=== PATIENT | female | born 1990 | race Caucasian/White ===

== ENCOUNTER 2016-03-20 22:34 | Emergency (ER) | payer OTHER ==
[2016-03-20] MEDS ORDERED: IBUPROFEN 600 MG TABLET (FP) PO ONE ×2 (22:50→22:54)
[2016-03-20 22:59] VITALS: BP 132/70; BMI 21.4
--- NOTE | 2016-03-20 23:24 | PDOC ---
History of Present Illness - General History Source: Patient, Family - History of Present Illness Initial Comments: 03/21/16 00:29 The patient is a 25 year old Maltese speaking female with no significant past medical history who presents to the Emergency Department with complaints of fever, chills, weakness, and generalized body ache since this morning. As per her sister in-law, pt took Tylenol x2 for her pain with no relief. She states that last time she had food was 6 hours ago. The patient is breast feeding and had a delivery 9 months ago. She denies chest pain, SOB, abdominal pain, nausea , vomiting, diarrhea, hematuria, dysuria, headache. (-) flu isabel <Chloe Kimbrough - Last Filed: 03/21/16 00:29> <Concepción Lyon - Last Filed: 03/21/16 04:04> - General Chief Complaint: Respiratory Stated Complaint: WEAKNESS Time Seen by Provider: 03/20/16 23:24 Past History <Chloe Kimbrough - Last Filed: 03/21/16 00:29> - Past Medical History Asthma: No Cancer: No Cardiac Disorders: No Diabetes: No HTN: No Seizures: No Thyroid Disease: No - Psycho/Social/Smoking Cessation Hx Suicidal Ideation: No Smoking History: Never smoked Have you smoked in the past 12 months: No Hx Alcohol Use: No Drug/Substance Use Hx: No Hx Substance Use Treatment: No <Concepción Lyon - Last Filed: 03/21/16 04:04> - Past Medical History Allergies/Adverse Reactions: Allergies Allergy/AdvReac Type Severity Reaction Status Date / Time No Known Allergies Allergy Verified 03/20/16 22:47 Review of Systems - Review of Systems Able to Perform ROS?: Yes Comments:: 03/21/16 00:30 GENERAL/CONSTITUTIONAL: Yes: fever, chills, generalized bodyache, weakness No: loss of appetite. HEAD, EYES, EARS, NOSE AND THROAT: No: change in vision, ear pain, discharge, sore throat, throat swelling. CARDIOVASCULAR: No: chest pain, lightheadedness, palpitations, syncope RESPIRATORY: No: cough, shortness of breath, wheezing, hemoptysis, stridor. GASTROINTESTINAL: No: nausea, vomiting, abdominal cramping, diarrhea, rectal bleeding, constipation. GENITOURINARY: No: dysuria, hematuria, frequency, urgency, flank pain. MUSCULOSKELETAL: No: back pain, neck pain, joint pain, muscle swelling or pain SKIN AND BREASTS: No: lesions, pallor, rash or easy bruising. NEUROLOGIC: No: headache, vertigo, paresthesias, weakness ENDOCRINE: No: unexplained weight gain or loss HEMATOLOGIC/LYMPHATIC: No: anemia, easy bleeding, swelling nodes All Other Systems: Reviewed and Negative <Chloe Kimbrough - Last Filed: 03/21/16 00:29> *Physical Exam - Vital Signs Last Vital Signs Temp Pulse Resp BP Pulse Ox 100.3 F H 138 H 22 132/70 100 03/20/16 22:52 03/20/16 22:52 03/20/16 22:52 03/20/16 22:52 03/20/16 22:52 - Physical Exam Comments: 03/21/16 00:31 GENERAL: The patient is in no acute distress. HEAD: Normal with no signs of trauma. EYES: PERRLA, EOMI, sclera anicteric, conjunctiva clear. ENT: Ears normal, nares patent, oropharynx clear without exudates. Moist mucous membranes. NECK: Normal range of motion, supple without lymphadenopathy, JVD, or masses. LUNGS: Breath sounds equal, clear to auscultation bilaterally. No wheezes, and no crackles. HEART:+tachycardia. normal S1 and S2 without murmur, rub or gallop. ABDOMEN: Soft, nontender, normoactive bowel sounds. No guarding, no rebound. EXTREMITIES: Normal range of motion, no edema. No clubbing or cyanosis. No erythema, or tenderness. NEUROLOGICAL: Cranial nerves II through XII grossly intact. Normal speech. No focal neurological deficits. MUSCULOSKELETAL: Back non-tender to palpation, no CVA tenderness SKIN: Warm, Dry, normal turgor, no rashes or lesions noted. <Chloe Kimbrough - Last Filed: 03/21/16 00:29> - Vital Signs Last Vital Signs Temp Pulse Resp BP Pulse Ox 100.3 F H 138 H 22 132/70 100 03/20/16 22:52 03/20/16 22:52 03/20/16 22:52 03/20/16 22:52 03/20/16 22:52 <Concepción Lyon - Last Filed: 03/21/16 04:04> ED Treatment Course - Medications Given in the ED: ED Medications Discontinued Medications Generic Name Dose Route Start Last Admin Trade Name Freq PRN Reason Stop Dose Admin Ibuprofen 600 mg 03/20/16 22:54 03/20/16 22:54 Motrin - PO 03/20/16 22:55 600 mg NOW ONE Administration <Chloe Kimbrough - Last Filed: 03/21/16 00:29> - LABORATORY CBC & Chemistry Diagram: 03/21/16 00:34 03/21/16 00:34 - Medications Given in the ED: ED Medications Discontinued Medications Generic Name Dose Route Start Last Admin Trade Name Freq PRN Reason Stop Dose Admin Ibuprofen 600 mg 03/20/16 22:54 03/20/16 22:54 Motrin - PO 03/20/16 22:55 600 mg NOW ONE Administration <Concepción Lyon - Last Filed: 03/21/16 04:04> Medical Decision Making - Medical Decision Making 03/21/16 04:01 Pt comes with viral syndrome; fever and body aches and weakness that is generalized. She is able to eat, but doesn't feel like eating. She was treated with hydration and pain meds. Pt feeling better; labs are normal and she has no influenza on rapid influenza. No UTI and her WBC is normal. She will be discharged home. Tylenol for pain, as she is breast feeding. <Concepción Lyon - Last Filed: 03/21/16 04:04> *DC/Admit/Observation/Transfer - Attestations Scribe Attestion: 03/21/16 00:32 Documentation prepared by Chloe Kimbrough, acting as medical office rep for Concepción Lyon MD. <Chloe Kimbrough - Last Filed: 03/21/16 00:29> - Discharge Dispostion Admit: No <Concepción Lyon - Last Filed: 03/21/16 04:04> Diagnosis at time of Disposition: Viral syndrome - Discharge Dispostion Disposition: HOME Condition at time of disposition: Stable - Referrals Referrals: Sarah Figueroa MD [Primary Care Provider] - - Patient Instructions Printed Discharge Instructions: DI for Viral Syndrome Additional Instructions: Continue to take Tylenol 650mg every 6 hours for aches/ fever. Follow up with your doctor. Drink plenty of clear fluids. Return to emergency room for shortness of breath, pain, or any other concerns.
[2016-03-21 00:48] LABS: PLATELET COUNT 175 K/MM3 (134-434)
[2016-03-21 00:52] LABS: BASOPHIL 0.6 % (0-2.0); EOSINOPHIL 0.2 % (0-4.5); MCH 27.4 pg (25.7-33.7); MCHC 33.3 g/dl (32.0-36.0); MEAN CELL VOLUME 82.3 fl (80-96); MEAN PLT VOLUME 8.7 fl (7.5-11.1); NEUTROPHILS 82.5 % (42.8-82.8); RDW 13.4 % (11.6-15.6); WHITE BLOOD COUNT 7.9 K/mm3 (4.0-10.0)
[2016-03-21 00:55] LABS: URINE APPEARANCE CLEAR; URINE BILIRUBIN NEGATIVE (NEGATIVE); URINE COLOR LTYELLOW; URINE GLUCOSE (UA) NEGATIVE (NEGATIVE); URINE KETONE NEGATIVE (NEGATIVE); URINE LEUK ESTERASE NEGATIVE (NEGATIVE); URINE NITRITE NEGATIVE (NEGATIVE); URINE PROTEIN NEGATIVE (NEGATIVE); URINE UROBILINOGEN NEGATIVE E.U./dl (0.2-1.0)
[2016-03-21 00:56] LABS: URINE BLOOD 1+ (NEGATIVE)
[2016-03-21 01:05] LABS: URINE BACTERIA FEW /hpf (NONE SEEN); URINE MUCUS RARE; URINE RBC 2 /hpf (0-3); URINE WBC 4 /hpf (3-5)
[2016-03-21 01:11] LABS: ALK PHOS 82 U/L (45-117); ANION GAP 11 (8-16); BILIRUBIN,TOTAL 0.9 mg/dL (0.2-1.0); CALCIUM 9.4 mg/dL (8.5-10.1); CO2 27 mmol/L (21-32); CREATININE 0.7 mg/dL (0.55-1.02); GLUCOSE,RANDOM 98 mg/dL (74-106); SGOT/AST 44 U/L (15-37); SGPT/ALT 53 U/L (12-78); TOT PROT 7.2 g/dl (6.4-8.2)
[2016-03-21 01:48] VITALS: PULSE 99; TEMP 99
== END 2016-03-21 01:52 | disposition home or self-care (01) ==
LOC: JER 22:34 → EDBD 22:34 → JER 03-21 01:48
DX: B34.9 Viral infection, unspecified (principal)
CPT/HCPCS: 36415; 80053; 81003; 81015; 84703; 85025; 87804; 99281-25

== ENCOUNTER 2017-04-17 20:01 | Emergency (ER) | payer OTHER ==
[2017-04-17 20:05] VITALS: BP 124/84; PULSE 83; TEMP 98.6; BMI 23.0
--- NOTE | 2017-04-17 20:45 | PDOC ---
History of Present Illness - General History Source: Patient Exam Limitations: No Limitations - History of Present Illness Initial Comments: 04/17/17 20:51 The patient is a 26 year old female with no significant past medical history who presents to the ED with 2 days of cold like symptoms. The patient reports a subjective fever and chills that started yesterday. She also reports cough, nasal congestion, and generalized body aches associated with present symptoms. Patient did not take any medication for present symptoms. Denies shortness of breath or chest pain. Denies any other symptoms. PAST MEDICAL HISTORY: no significant history PAST SURGICAL HISTORY: no significant history FAMILY HISTORY: no pertinent history SOCIAL HISTORY: Pt lives with family and is employed. MEDICATIONS: reviewed ALLERGIES: As per nursing notes General: + fever, chills No no weakness, no weight loss HEENT: + nasal congestion. No change in vision. No sore throat,. No ear pain CardioVascular: No chest pain or shortness of breath Respiratory: + cough. No wheezing. Gastrointestinal: no nausea, vomiting, diarrhea or constipation, No rectal bleeding Genitourinary: No dysuria, hematuria, or frequency Musculoskeletal: + generalized body aches. Neurologic: No headache, vertigo, dizziness or loss of consciousness Psychiatric: nor depression Skin: No rashes or easy bruising Endocrine: no increased thirst or abnormal weight change Allergic: no skin or latex allergy All other systems reviewed and normal General: Well-nourished well-developed individual, no acute distress HEENT: Throat: + There is mild erythema in the posterior oropharynx. Normal, tonsils normal, no exudate Neck: Supple, no meningeal signs, no lymphadenopathy Eyes::Pupils equal reactive and round, extraocular motion intact Chest: Nontender to palpation Cardiac: S1-S2 normal, regular rate and rhythm, no murmurs rubs or gallops Respiratory: Lungs clear to auscultation bilateral Abdomen: Soft, nondistended, normal bowel sounds, nontender to palpation diffusely Extremities: Warm, dry, no cyanosis, clubbing, or edema Skin: No rashes Neuro: Alert and oriented x3, nonfocal exam, grossly intact, normal gait Psych: Normal mood and affect <Trino Baltazar - Last Filed: 04/17/17 20:51> - General History Source: Patient Exam Limitations: No Limitations - History of Present Illness Initial Comments: A portion of this note was documented by scribe services under my direction. I have reviewed the details of the note, within reason, and agree with the documentation. The case summary and management plan written by me. Assessment and plan: This is a 26-year-old female with 2 days of viral upper respiratory flulike illness symptoms. Patient does not appear acutely ill or toxic. Patient is able to tolerate by mouth's and was instructed to take Tylenol or Motrin for her fevers body aches and headache. Patient did not get her influenza shot this year so most likely this is the influenza. Patient was instructed to stay home and not go to work in tell she has no fevers for 24 hours and follow-up with her doctor. Patient discharged home <Ivory Amanda I - Last Filed: 04/17/17 21:39> - General Chief Complaint: Cold Symptoms Stated Complaint: COUGH X 2 DAYS Time Seen by Provider: 04/17/17 20:16 Past History <Trino Baltazar - Last Filed: 04/17/17 20:51> - Past Medical History Asthma: No Cancer: No Cardiac Disorders: No COPD: No Diabetes: No HTN: No Seizures: No Thyroid Disease: No - Suicide/Smoking/Psychosocial Hx Smoking History: Never smoked Have you smoked in the past 12 months: No Hx Alcohol Use: No Drug/Substance Use Hx: No Substance Use Type: None Hx Substance Use Treatment: No <Ivory Amanda I - Last Filed: 04/17/17 21:39> - Past Medical History Allergies/Adverse Reactions: Allergies Allergy/AdvReac Type Severity Reaction Status Date / Time No Known Allergies Allergy Verified 04/17/17 20:02 Home Medications: Ambulatory Orders NK [No Known Home Medication] 04/17/17 *Physical Exam - Vital Signs Last Vital Signs Temp Pulse Resp BP Pulse Ox 98.6 F 83 15 124/84 100 04/17/17 20:02 04/17/17 20:02 04/17/17 20:02 04/17/17 20:02 04/17/17 20:02 <Trino Baltazar - Last Filed: 04/17/17 20:51> - Vital Signs Last Vital Signs Temp Pulse Resp BP Pulse Ox 98.6 F 83 15 124/84 100 04/17/17 20:02 04/17/17 20:02 04/17/17 20:02 04/17/17 20:02 04/17/17 20:02 <Ivory Amanda I - Last Filed: 04/17/17 21:39> *DC/Admit/Observation/Transfer - Attestations Scribe Attestion: 04/17/17 20:51 Documentation prepared by Trino Baltazar, acting as medical data analyst for Ivory Amanda MD <Trino Baltazar - Last Filed: 04/17/17 20:51> - Discharge Dispostion Admit: No <Ivory Amanda I - Last Filed: 04/17/17 21:39> Diagnosis at time of Disposition: Influenza-like illness - Discharge Dispostion Disposition: HOME Condition at time of disposition: Stable - Patient Instructions Additional Instructions: You can alternate acetaminophen with ibuprofen every 3 hours if needed for body aches, headache, fevers. Stay home do not go out in public and expose other people, do not go to work until no fever for 24 hours without having to take any medication. Return to the emergency department immediately with ANY new, persistent or worsening symptoms. Continue any medications as previously prescribed by your physician. You should follow up with your primary doctor as soon as possible regarding today's emergency department visit. . Please make sure your doctor reviews the results of your emergency evaluation. Thank you for coming to the Emergency Department today for your care. It was a pleasure to see you today. Please note that your evaluation is INCOMPLETE until you follow-up with your doctor.
== END 2017-04-17 21:01 | disposition home or self-care (01) ==
LOC: FER 20:01
DX: J11.1 Influenza due to unidentified influenza virus with other respiratory manifestations (principal)
CPT/HCPCS: 99282-25

== ENCOUNTER 2017-07-21 04:38 | Emergency (ER) | payer OTHER ==
--- NOTE | 2017-07-21 04:45 | PDOC ---
History of Present Illness - General Stated Complaint: SIDE PAIN/BACK PAIN - History of Present Illness Initial Comments: Patient is a 26 year old female, with no significant past medical history, who presents to the emergency department complaining of one week of R flank pain. Pt with persistent, sharp R flank pain beginning one week ago, with no exacerbating or alleviating symptoms. Pt denies hematuria, dysuria, diarrhea, constipation, f/c. Pt states pain has been so intense that pt experiences intermittent N/V and dizziness. No hx of kidney stones, urologic/GI/gynecologic conditions. Pt last period was two days ago, grossly normal. Patient denies chest pain, shortness of breath, headache.. Denies fever, chills , diarrhea and constipation. Denies dysuria, frequency, urgency and hematuria. Allergies: None Past surgical history: None Social History: Denies toxic habits; lives with family and is employed PMD: Dr. Sarah Figueroa 07/21/17 04:45 Past History - Past Medical History Allergies/Adverse Reactions: Allergies Allergy/AdvReac Type Severity Reaction Status Date / Time No Known Allergies Allergy Verified 07/21/17 04:52 Home Medications: Ambulatory Orders Ibuprofen [Motrin -] 600 mg PO Q4H #30 tablet 07/21/17 Methocarbamol [Robaxin -] 500 mg PO BID #14 tablet 07/21/17 Asthma: No Cancer: No Cardiac Disorders: No COPD: No Diabetes: No HTN: No Seizures: No Thyroid Disease: No - Suicide/Smoking/Psychosocial Hx Smoking History: Never smoked Have you smoked in the past 12 months: No Hx Alcohol Use: No Drug/Substance Use Hx: No Substance Use Type: None Hx Substance Use Treatment: No Review of Systems - Review of Systems Comments:: GENERAL/CONSTITUTIONAL: No fever or chills. No weakness. HEAD, EYES, EARS, NOSE AND THROAT: No change in vision. No ear pain or discharge. No sore throat. CARDIOVASCULAR: No chest pain or shortness of breath RESPIRATORY: No cough, wheezing, or hemoptysis. GASTROINTESTINAL: No nausea, vomiting, diarrhea or constipation. GENITOURINARY: +R sided flank pain. No dysuria, frequency, or change in urination. MUSCULOSKELETAL: No joint or muscle swelling or pain. No neck pain. SKIN: No rash NEUROLOGIC: No headache, vertigo, loss of consciousness, or change in strength/ sensation. ENDOCRINE: No increased thirst. No abnormal weight change HEMATOLOGIC/LYMPHATIC: No anemia, easy bleeding, or history of blood clots. ALLERGIC/IMMUNOLOGIC: No hives or skin allergy. 07/21/17 04:45 *Physical Exam - Physical Exam Comments: GENERAL: Young woman, Awake, alert, and fully oriented, in no mild distress/ tearful HEAD: No signs of trauma, normocephalic, atraumatic EYES: PERRLA, EOMI, sclera anicteric, conjunctiva clear ENT: Auricles normal inspection, hearing grossly normal, nares patent, oropharynx clear without exudates. Moist mucosa NECK: Normal ROM, supple, no lymphadenopathy, JVD, or masses LUNGS: No distress, speaks full sentences, clear to auscultation bilaterally HEART: Regular rate and rhythm, normal S1 and S2, no murmurs, rubs or gallops, peripheral pulses normal and equal bilaterally. ABDOMEN: + R CVA tenderness. TTP in RLQ. otherwise, Soft, nontender, normoactive bowel sounds. No guarding, no rebound. No masses EXTREMITIES : Normal inspection, Normal range of motion, no edema. No clubbing or cyanosis. NEUROLOGICAL: Cranial nerves II through XII grossly intact. Normal speech, normal gait, no focal sensorimotor deficits SKIN: Warm, Dry, normal turgor, no rashes or lesions noted 07/21/17 04:45 Medical Decision Making - Medical Decision Making Patient is a 26 year old female, with no significant past medical history, who presents to the emergency department complaining of one week of R flank pain. DDX includes UTI, pyelonephritis, perinephric abscess, renal stone, MSK pain, appendicitis, ovarian torsion, ovarian cyst, mesenteric ischemia, PID. Plan: - Toradol IM for pain control - CT ab/pelvis - UA, urine- test 07/21/17 05:30 CT A/P normal. UA, B-hcg normal. Will discharge home with outpt f/u with PCP and rx for motrin and robaxin. 07/21/17 06:59 *DC/Admit/Observation/Transfer Diagnosis at time of Disposition: Lumbar strain Qualifiers: Encounter type: initial encounter Qualified Code(s): S39.012A - Strain of muscle, fascia and tendon of lower back, initial encounter - Discharge Dispostion Disposition: HOME Condition at time of disposition: Good Decision to Admit order: No - Prescriptions Prescriptions: Ibuprofen [Motrin -] 600 mg PO Q4H #30 tablet Methocarbamol [Robaxin -] 500 mg PO BID #14 tablet - Referrals Referrals: Sarah Figueroa MD [Primary Care Provider] - Kiat Arenas MD [Staff Physician] - - Patient Instructions Printed Discharge Instructions: Managing Chronic Low Back Pain Additional Instructions: During your visit to the [facility] ED, you were evaluated for pain in your lower back. You received a CT scan of your abdomen and pelvis and urine testing which were all negative. You are being discharged home with outpatient follow-up with your primary care provider. Please take Motrin 600mg every four hours as needed for your lower back pain. You are being provided a prescription for Robaxin 500mg. Please take this medication twice a day, by mouth as needed. If you experience any of the following symptoms, please return to the ED: - Persistent fevers/chills >3 days - Worsening of your lower back pain - Blood in your urine, pain upon urination - Worsening diarrhea, bloody or dark tarry stools - Any new or concerning symptoms - Post Discharge Activity
[2017-07-21 04:54] VITALS: BP 121/71; PULSE 95; TEMP 97.6; BMI 26.5
[2017-07-21] MEDS ORDERED: morphine SULFATE 4 MG/ML VIAL IVPUSH ONE (05:03)
--- NOTE | 2017-07-21 05:06 | PDOC ---
Attending Attestation - HPI HPI: 07/21/17 05:13 The patient is a 26 year old female, with no significant past medical history, who presents to the emergency department with, 1 week of right sided flank pain with associated nausea without emesis. The patient describes her pain as intense and is crying upon exam. She reports her last menses to be 2 days ago and normal. She denies any history of kidney stones. She denies recent fevers, chills, headache or dizziness. She denies recent vomit, diarrhea or constipation. She denies recent dysuria, frequency, urgency or hematuria. She denies recent chest pain or shortness of breath. Allergies: NKA Past surgical history: None reported. Social history: Nonsmoker. Denies EtOH use and recreational drug use. Primary Care Physician: Dr. Sarah Figueroa <Shruti Ludwig - Last Filed: 07/21/17 05:13> - Resident Resident Name: Klever Pereyra - ED Attending Attestation I have performed the following: I have examined & evaluated the patient, The case was reviewed & discussed with the resident, I agree w/resident's findings & plan, Exceptions are as noted - Physicial Exam PE: 07/21/17 19:27 Physical Exam General Appearance: Yes: Appropriately Dressed. No: Apparent Distress, Intoxicated HEENT: positive: EOMI, DAYANNA, Normal ENT Inspection, Normal Voice, TMs Normal, Pharynx Normal. negative: Pale Conjunctivae, Photophobia, Scleral Icterus (R), Scleral Icterus (L) Neck: positive: Trachea midline, Normal Thyroid, Supple. negative: Tender, Rigid, Carotid bruit, Stridor, Lymphadenopathy (R), Lymphadenopathy (L), Thyromegaly Respiratory/Chest: positive: Lungs Clear, Normal Breath Sounds. negative: Chest Tender, Respiratory Distress, Accessory Muscle Use, Labored Respiration, RES, Crackles, Rales, Rhonchi, Stridor, Wheezing, Dullness Cardiovascular: positive: Regular Rhythm, Regular Rate, S1, S2. negative: Edema , JVD, Murmur, Bradycardia, Tachycardia Vascular Pulses: Dorsalis-Pedis (R): 2+, Doralis-Pedis (L): 2+ Gastrointestinal/Abdominal: positive: Normal Bowel Sounds, Flat, Soft. negative : Tender, Organomegaly, Pulsatile Mass, Increased Bowel Sounds, Decreased BS, Distended, Guarding, Rebound, Hernia, Hepatomegaly, Spleenomegaly Lymphatic: negative: Adenopathy, Tenderness Musculoskeletal: positive: Normal Inspection. negative: CVA Tenderness, Decreased Range of Motion Extremity: positive: Normal Capillary Refill, Normal Inspection, Normal Range of Motion, Pelvis Stable. negative: Tender, Pedal Edema, Swelling, Erythema Integumentary: positive: Normal Color, Dry, Warm. negative: Cyanotic, Erythema , Jaundice, Rash Neurologic: positive: highway inspector II-XII NML intact, Fully Oriented, Alert, Normal Mood/ Affect, Motor Strength 5/5. negative: EOM Palsy, Facial Droop, Sensory Deficit - Medical Decision Making 07/21/17 19:28 Pt treated and released <Gordon Hoover - Last Filed: 07/21/17 19:28> Attestations - Attestations 07/21/17 05:14 Documentation prepared by Shruti Ludwig, acting as medical records custodian for Godron Hoover DO. <Shruti Ludwig - Last Filed: 07/21/17 05:13>
[2017-07-21] MEDS ORDERED: KETOROLAC TROMETHAMINE 60 MG/2 ML VIAL IM ONE (05:11)
[2017-07-21 05:41] LABS: URINE APPEARANCE CLEAR; URINE BILIRUBIN NEGATIVE (<2.0 mg/dL); URINE COLOR COLORLESS; URINE GLUCOSE (UA) NEGATIVE (NEGATIVE); URINE KETONE NEGATIVE (NEGATIVE); URINE LEUK ESTERASE NEGATIVE (NEGATIVE); URINE NITRITE NEGATIVE (NEGATIVE); URINE PROTEIN NEGATIVE (NEGATIVE); URINE UROBILINOGEN NEGATIVE mg/dL (0.2-1.0)
== END 2017-07-21 07:09 | disposition home or self-care (01) ==
LOC: JER 04:38
PROC: 3E0233Z Introduction of Anti-inflammatory into Muscle, Percutaneous Approach (ICD-10-PCS; principal; 2017-07-21)
DX: S39.012A Strain of muscle, fascia and tendon of lower back, initial encounter (principal); X58.XXXA Exposure to other specified factors, initial encounter; Y93.89 Activity, other specified; Y92.89 Other specified places as the place of occurrence of the external cause; Y99.8 Other external cause status
CPT/HCPCS: 74176-TC; 81003; 84703; 99281-25

== ENCOUNTER 2022-09-20 03:20 | Emergency (ER) | payer OTHER ==
[2022-09-20 03:30] VITALS: RESP 18; BMI 23.0
[2022-09-20 07:41] VITALS: BP 115/74; PULSE 75; TEMP 99.6
[2022-09-20] MEDS ORDERED: DIPHTH,PERTUSS(ACELL),TET 0.5 ML DISP.SYRIN IM ONE ×2 (07:54→07:57)
== END 2022-09-20 08:05 | disposition home or self-care (01) ==
LOC: JER 03:20
PROC: 3E0234Z Introduction of Serum, Toxoid and Vaccine into Muscle, Percutaneous Approach (ICD-10-PCS; principal; 2022-09-20)
DX: S61.001A Unspecified open wound of right thumb without damage to nail, initial encounter (principal); W26.0XXA Contact with knife, initial encounter; Y28.1XXA Contact with knife, undetermined intent, initial encounter; Y93.G3 Activity, cooking and baking; Y92.9 Unspecified place or not applicable
CPT/HCPCS: 90471; 90715; 99282-25